=== PATIENT | male | born 1955 | race Asian ===

== ENCOUNTER 2023-08-10 13:45 | Day surgery (SDC) | payer MEDICARE, OTHER ==
[2023-08-10] VITALS (11 sets, daily range): BP systolic 108–128; BP diastolic 46–88; PULSE 68–81; TEMP 97.6–98.3
[~2023-08-10] VITALS: Ht 165.1 cm; Wt 69.6 kg
[~2023-08-10 13:45] MED LIST: LR 1,000 ML IV SCH; PEPCID 20MG TAB20 MG PO; calcium supplement
[2023-08-10] MEDS ORDERED: FLOMAX 0.40.4 MG/CAP PO (14:33)
[2023-08-10] MEDS ORDERED: Hyoscyamine 0.125 MG Sublingual TAB SL PRN (17:00)
[2023-08-10] MEDS ORDERED: Morphine 4 MG/ML VIAL IV PRN (17:00)
[2023-08-10] MEDS ORDERED: 1/2 NS & 20 mEq KCl 1,000 ML IV SCH (17:00)
[2023-08-10] MEDS ORDERED: Magnes Hydrox (MOM) 80 MG/ML 30 ML CUP PO PRN (17:00)
[2023-08-10] MEDS ORDERED: Ondansetron 4 MG/2 ML VIAL IV PRN ×2 (17:00→17:45)
[2023-08-10] MEDS ORDERED: NS Irrig Soln 3000 ML SOLN IR PRN (17:00)
[2023-08-10] MEDS ORDERED: Acetaminophen 325 MG TAB PO PRN (17:00)
[2023-08-10] MEDS ORDERED: HYDROmorphone 2 MG/1 ML VIAL IV PRN (17:45)
[2023-08-10] MEDS ORDERED: fentaNYL 50 MCG/ML 2 ML VIAL IV PRN (17:45)
[2023-08-10] MEDS ORDERED: Lidocaine 2% (20 MG/ML) 20 ML UROJET UR ONE (17:49)
[2023-08-10] MEDS ORDERED: ePHEDrine 50 MG/ML VIAL ONE (17:59)
--- NOTE | 2023-08-10 18:45 | NUR ---
PT RETURNED FROM PACU. AWAKE AND ALERT. PT STABLE. CBI INFUSING MOD RATE WITH RED TINGED URINE RETURNED. DENIES PAIN AT THIS TIME. FAMILY HERE. CALL LIGHT IN REACH. STARTED ON CLEAR LIQ DIET.
[2023-08-10] MEDS ORDERED: Nystatin 100,000 Units/GM Ointment 15 GM TUBE TP SCH (21:00)
[2023-08-10] MEDS ORDERED: Docusate Sodium 100 MG CAP PO SCH (21:00)
--- NOTE | 2023-08-10 21:00 | NUR ---
PT HAD SPINAL ANESTHESIA. PT ABLE TO FEEL TOUCH AND ABLE TO MOVE LEGS. HE REPORTS STILL HAS SOME NUMBNESS.
--- NOTE | 2023-08-10 23:30 | NUR ---
PT RESTING NOW. NO DISTRESS. VS. CBI CONTINUE AT MOD RATE WITH RED TINGED RETURN. MINIMAL CLOTS. NO NEEDS AT THIS TIME.
[2023-08-11 03:13] VITALS: BP 114/62; PULSE 77; TEMP 98.4
[2023-08-11 04:05] VITALS: BP_SYST 114
[2023-08-11 07:20] VITALS: BP 114/67; PULSE 68; TEMP 98.3
[2023-08-11 07:56] VITALS: BP_SYST 114
--- NOTE | 2023-08-11 08:00 | NUR ---
Patient awake and alert this am, watching TV. Beaulieu to DD, CBI clamped, output pink tinged. Patient does report beaulieu discomfort, medications offered, but no interest in medication. INT. Breakfast ordered, denies nausea. Patient stand by assist to chair, spinal wore off, steady on his feet. Scds off. Will monitor
--- NOTE | 2023-08-11 09:23 | NUR ---
Patient up in chair, appears more uncomfortable. He reports discomfort to bladder/ beaulieu. I discussed with him potential bladder spasms. Patient medicated with Tylenol and Levsin, medication reviewed with patient. Beaulieu cares given and ointments applied. Beaulieu remains to traction and yoselin knot in place. Will continue to montior patient.
--- NOTE | 2023-08-11 11:28 | NUR ---
rounded, plan of care reviewed and orders obtained. Patient family at bedside. Beaulieu Dc and 6 cup routine started. Patient tolerated well and has voided x2. Blood tinged urine with no clots seen. He denies difficulty. Overall reports feeling much better since beaulieu being removed. Will monitor
[2023-08-11 11:53] VITALS: BP 149/72; PULSE 60; TEMP 96.7
--- NOTE | 2023-08-11 11:56 | NUR ---
Data: Acoustic Intelligence Specialist visit offered during Acoustic Intelligence Specialist rounds. Patient had several visitors. Assessment: None. Acoustic Intelligence Specialist visit delayed due to visitors. Plan of Care: Acoustic Intelligence Specialist will return in the afternoon to offer visit again.
[2023-08-11 12:23] VITALS: BP_SYST 149
--- NOTE | 2023-08-11 13:07 | NUR ---
Data: Second attempt to visit. Patient was indisposed. Assessment: none Plan of Care: Chaplains will remain available as needed/requested while Patient is admitted to this hospital.
--- NOTE | 2023-08-11 13:25 | NUR ---
Patient has completed 6 cup routine, over 600 mls urine. still blood tinged, but clearing, no clots seen. He is having urgency and frequency, but denies pain or discomfort. Int DC. All discharge paperwork reviewed with patient and his family. We reviewed diet and importance of fluid intake, activity restrictions reviewed. Patient made aware of scheduled follow up appt.Medication list reviewed and AZO over the counter as reccommened. Patient and family deny questions and or concerns. Patient going to get dressed.
--- NOTE | 2023-08-11 14:16 | NUR ---
Patient ambulated out with all belongings. His family taking him home. Denies questions or concerns.
== END 2023-08-11 14:16 | disposition home or self-care (01) ==
LOC: SDCO 13:45 → SURG 18:45 → SDCO 08-11 14:16
DX: C61 Malignant neoplasm of prostate (principal); N40.1 Benign prostatic hyperplasia with lower urinary tract symptoms; R39.12 Poor urinary stream; R35.1 Nocturia; R39.14 Feeling of incomplete bladder emptying; F17.210 Nicotine dependence, cigarettes, uncomplicated
CPT/HCPCS: OP; J2704; J3480; J7120